=== PATIENT | female | born 1995 | race African-American/Black ===

== ENCOUNTER 2019-02-28 13:39 | Emergency (ER) | payer MEDICAID ==
--- NOTE | 2019-02-28 15:35 | ER Document Report ---
ED Medical Screen (RME) - General Chief Complaint: Abdominal Pain Stated Complaint: LOWER ABDOMINAL PAIN Time Seen by Provider: 02/28/19 15:30 Primary Care Provider: MARIAELENA MAST NP [Primary Care Provider] - Follow up as needed TRAVEL OUTSIDE OF THE [place] IN LAST 30 DAYS: No - HPI Notes: 02/28/19 15:33 Patient is a 23-year-old female with a history of ovarian cyst who presents complaining of acute on chronic pelvic pain. Patient states that she will have this type of pelvic pain every couple weeks or during her menstrual cycle. Patient states that this pain is to her right lower pelvic and does not radiate. Her last menstrual period was 2 weeks ago. No other vaginal discharge, odor, or bleeding. No abdominal surgeries in the past. She is able to eat and drink without difficulty. She is urinating normally and having normal bowel movements. No fever. I have treated and performed a rapid initial assessment of this patient. A comprehensive ED assessment and evaluation of the patient, analysis of test results and completion of medical decision making process will be conducted by additional ED providers. PHYSICAL EXAMINATION: GENERAL: Well-appearing, well-nourished and in no acute distress. A&Ox4. Answers questions appropriately. Abdomen: Limited exam in triage, but abdomen is soft. She does have some tenderness to the right lower pelvic area. - Related Data Allergies/Adverse Reactions: grape [Grape] Allergy (Verified 06/04/11 22:00) pineapple [Pineapple] Allergy (Verified 06/04/11 22:00) Home Medications: concerta 54mg Past Medical History - Social History Frequency of alcohol use: None Drug Abuse: None - Immunizations Immunizations up to date: No Hx Diphtheria, Pertussis, Tetanus Vaccination: Yes Doctor's Discharge - Discharge Referrals: MARIAELENA MAST NP [Primary Care Provider] - Follow up as needed
[2019-02-28 16:19] LABS: ABSOLUTE BASOPHILS # (AUTO) 0.1 10^3/uL (0.0-0.2); ABSOLUTE EOSINOPHILS # (AUTO) 0.1 10^3/uL (0.0-0.6); ABSOLUTE LYMPHOCYTES (AUTO) 2.5 10^3/uL (0.5-4.7); ABSOLUTE MONOCYTES (AUTO) 0.8 10^3/uL (0.1-1.4); ABSOLUTE NEUT (AUTO) 9.6 10^3/uL (1.7-8.2); BASOPHILS % (AUTO) 0.7 % (0-2); EOSINOPHILS % (AUTO) 0.8 % (0-6); HEMATOCRIT 39.6 % (36.0-47.0); HEMOGLOBIN 13.1 g/dL (12.0-15.5); LYMPHOCYTES % (AUTO) 18.9 % (13-45); MEAN CORPUSCULAR HEMOGLOBIN 28.3 pg (27.0-33.4); MEAN CORPUSCULAR HGB CONC 33.1 g/dL (32.0-36.0); MEAN CORPUSCULAR VOLUME 85 fl (80-97); MONOCYTES % (AUTO) 5.9 % (3-13); PLATELET COUNT 274 10^3/uL (150-450); RED BLOOD COUNT 4.65 10^6/uL (3.72-5.28); RED CELL DISTRIBUTION WIDTH 13.9 % (11.5-14.0); SEGMENTED NEUTROPHILS % (AUTO) 73.7 % (42-78); TOTAL CELLS COUNTED % (AUTO) 100 %
[2019-02-28 16:23] LABS: APPEARANCE,URINE CLEAR; BILIRUBIN,URINE NEGATIVE (NEGATIVE); COLOR,URINE YELLOW; GLUCOSE, URINE NEGATIVE (NEGATIVE); KETONES,URINE NEGATIVE (NEGATIVE); PROTEIN,URINE NEGATIVE (NEGATIVE); URINE SPECIFIC GRAVITY 1.014; UROBILINOGEN,URINE NEGATIVE mg/dL (<2.0)
[2019-02-28 16:36] LABS: ALBUMIN 4.2 g/dL (3.5-5.0); ALKALINE PHOSPHATASE 112 U/L (38-126); ANION GAP 10 (5-19); ASPARTATE AMINO TRANSFERASE 22 U/L (14-36); BILIRUBIN,DIRECT 0.1 mg/dL (0.0-0.4); BILIRUBIN,TOTAL 0.6 mg/dL (0.2-1.3); BLOOD UREA NITROGEN 7 mg/dL (7-20); CALCIUM 9.6 mg/dL (8.4-10.2); CARBON DIOXIDE 26 mmol/L (22-30); CHLORIDE 102 mmol/L (98-107); GLUCOSE 87 mg/dL (75-110); POTASSIUM 4.1 mmol/L (3.6-5.0); TOTAL PROTEIN 7.7 g/dL (6.3-8.2)
--- NOTE | 2019-02-28 17:32 | ER Document Report ---
ED GI/ - General Chief Complaint: Abdominal Pain Stated Complaint: LOWER ABDOMINAL PAIN Time Seen by Provider: 02/28/19 15:30 Primary Care Provider: [facility] [Provider Group] - Follow up as needed MARIAELENA MAST NP [Primary Care Provider] - Follow up as needed Notes: Patient is a 23-year-old female who presents to the emergency department with a chief complaint of pelvic pain. Patient reports this morning after urinating and while on the toilet she felt like something "dropped" in her pelvis. Patient reports she had to get assistance to help her off of the toilet due to the pelvic pain. Patient reports the pelvic pain is worse on the right side. Patient states it does not radiate. Patient denies vaginal bleeding or discharge. Patient denies history of abdominal surgeries. Patient reports normal bowel movements and denies urinary symptoms. Patient reports she is on oral control pills and her last menstrual cycle was the second week of February. Patient reports that the pain is worse with coughing and movement. Patient reports that the pain is relieved when she lays on her back. Patient denies fever. Patient reports she does have a history of ovarian cysts but that this pain appears worse. TRAVEL OUTSIDE OF THE [place] IN LAST 30 DAYS: No - Related Data Allergies/Adverse Reactions: grape [Grape] Allergy (Verified 06/04/11 22:00) pineapple [Pineapple] Allergy (Verified 06/04/11 22:00) Home Medications: concerta 54mg Past Medical History - General Information source: Patient - Social History Smoking Status: Never Smoker Frequency of alcohol use: None Drug Abuse: None Lives with: Family Family History: Reviewed & Not Pertinent Patient has suicidal ideation: No Patient has homicidal ideation: No - Past Medical History Cardiac Medical History: Reports: None Pulmonary Medical History: Reports: None EENT Medical History: Reports: None Neurological Medical History: Reports: None Endocrine Medical History: Reports: None Renal/ Medical History: Reports: Hx Ovarian Cysts Malignancy Medical History: Reports: None GI Medical History: Reports: None Musculoskeletal Medical History: Reports None Skin Medical History: Reports None Psychiatric Medical History: Reports: None Traumatic Medical History: Reports: None Infectious Medical History: Reports: None Past Surgical History: Reports: None - Immunizations Immunizations up to date: No Hx Diphtheria, Pertussis, Tetanus Vaccination: Yes Hx Pneumococcal Vaccination: 03/05/00 Review of Systems - Review of Systems Constitutional: No symptoms reported EENT: No symptoms reported Cardiovascular: No symptoms reported Respiratory: No symptoms reported Gastrointestinal: See HPI Genitourinary: No symptoms reported Female Genitourinary: See HPI Musculoskeletal: No symptoms reported Skin: No symptoms reported Hematologic/Lymphatic: No symptoms reported Neurological/Psychological: No symptoms reported Physical Exam - Vital signs Vitals: Temp Pulse Resp BP Pulse Ox 98.1 F 87 16 111/70 99 02/28/19 15:20 02/28/19 15:20 02/28/19 15:20 02/28/19 15:20 02/28/19 15:20 - Notes Notes: GENERAL: Well-appearing, well-nourished and in no acute distress. HEAD: Atraumatic, normocephalic. EYES: Pupils equal round and reactive to light, extraocular movements intact, s clera anicteric, conjunctiva are normal. ENT: Nares patent, oropharynx clear without exudates. Moist mucous membranes. NECK: Normal range of motion, supple without lymphadenopathy or JVD. LUNGS: Breath sounds clear to auscultation bilaterally and equal. No wheezes rales or rhonchi. HEART: Regular rate and rhythm without murmurs, rubs or gallops. ABDOMEN: Soft, generalized lower abdominal tenderness with rebound to llq and rlq, normoactive bowel sounds. No guarding. No masses appreciated. BACK: No cervical, thoracic, lumbar midline tenderness. No saddle anesthesia, normal distal neurovascular exam. GENITOURINARY: Deferred. EXTREMITIES: Normal range of motion, no pitting or edema. No clubbing or cyanosis. NEUROLOGICAL: Cranial nerves II through XII grossly intact. Normal speech, normal gait. PSYCH: Normal mood, normal affect. SKIN: Warm, Dry, normal turgor, no rashes or lesions noted. Course - Re-evaluation Re-evalutation: 02/28/19 17:31 Patient in ultrasound. 02/28/19 19:12 Patient's ultrasound was unable to visualize the ovaries due to bowel gas pattern. Upon reevaluation patient is resting comfortably on stretcher. I did place the patient in a supine position for an abdominal examination and reevaluation. Patient remains significantly tender with rebound tenderness in the right lower quadrant as well as the left lower quadrant. Patient continues to state that this does not feel like her normal type of ovarian cyst pain. Patient reports she has tolerated a CT in the past without difficulty. I did inform the patient that I would like to obtain a CT to rule out possible appendicitis and intra-abdominal abnormality. Patient verbalized understanding. Patient reports that she is not sexually active and has not had sexual intercourse in 2 years. Patient reports her concern for sexually transmitted disease is extremely low due to this. Patient denies vaginal bleeding or discharge. 02/28/19 21:[address] Abreu with [facility] to discuss the results of the CT and ultrasound, mild leukocytosis of 13. She does recommend the patient have any repeat ultrasound and to call the office at [facility] on Sunday. Patient reports she does have health insurance and will call them on Sunday. Patient given strict return precautions. We will give the patient anti-inflammatory medication to go home with. Patient continue her oral control. Patient has been afebrile, normotensive and not tachycardic since being here in the emergency department. Patient is resting comfortably on stretcher no acute distress. - Vital Signs Vital signs: Temp Pulse Resp BP Pulse Ox 98.9 F 85 16 134/75 H 100 02/28/19 19:18 02/28/19 19:18 02/28/19 19:18 02/28/19 19:18 02/28/19 19:18 - Laboratory Result Diagrams: 02/28/19 15:55 02/28/19 15:55 Laboratory results interpreted by me: 02/28/19 15:55 WBC 13.0 H Absolute Neuts (auto) 9.6 H 02/28/19 21:55 Patient does have a small leg cytosis of 13. There is no significant anemia, alteration electrolytes or kidney function. Patient hCG is negative and urinalysis unremarkable. Laboratory 02/28/19 02/28/19 02/28/19 15:55 15:55 15:55 WBC 13.0 H RBC 4.65 Hgb 13.1 Hct 39.6 MCV 85 MCH 28.3 MCHC 33.1 RDW 13.9 Plt Count 274 Lymph % (Auto) 18.9 Davidson % (Auto) 5.9 Eos % (Auto) 0.8 Baso % (Auto) 0.7 Absolute Neuts (auto) 9.6 H Absolute Lymphs (auto) 2.5 Absolute Monos (auto) 0.8 Absolute Eos (auto) 0.1 Absolute Basos (auto) 0.1 Seg Neutrophils % 73.7 Sodium 137.5 Potassium 4.1 Chloride 102 Carbon Dioxide 26 Anion Gap 10 BUN 7 Creatinine 0.74 Est GFR ( Amer) > 60 Est GFR (MDRD) Non-Af > 60 Glucose 87 Calcium 9.6 Total Bilirubin 0.6 Direct Bilirubin 0.1 Neonat Total Bilirubin Not Reportable Neonat Direct Bilirubin Not Reportable Neonat Indirect Bili Not Reportable AST 22 ALT 18 Alkaline Phosphatase 112 Total Protein 7.7 Albumin 4.2 Urine Color YELLOW Urine Appearance CLEAR Urine pH 6.0 Ur Specific Stockett 1.014 Urine Protein NEGATIVE Urine Glucose (UA) NEGATIVE Urine Ketones NEGATIVE Urine Blood NEGATIVE Urine Nitrite (Reflex) NEGATIVE Urine Bilirubin NEGATIVE Urine Urobilinogen NEGATIVE Leukocyte Esterase Rfl NEGATIVE Urine RBC (Auto) 0 Urine Bacteria (Auto) 2+ Urine WBC (Reflex) 1 Squamous Epi Cells Auto <1 Urine Mucus (Auto) RARE Urine Ascorbic Acid NEGATIVE Urine HCG, Qual NEGATIVE - Diagnostic Test Radiology reviewed: Reports reviewed Radiology results interpreted by me: 02/28/19 19:12 Transvaginal US 02/28/19 15:33 IMPRESSION: Examination limited by a nonvisualization of the ovaries due to obscuration by intervening bowel gas. Normal sonographic appearance of the uterus. No free fluid or adnexal masses demonstrated. 02/28/19 21:23 Transvaginal US 02/28/19 15:33 IMPRESSION: Examination limited by a nonvisualization of the ovaries due to obscuration by intervening bowel gas. Normal sonographic appearance of the uterus. No free fluid or adnexal masses demonstrated. Abdomen/Pelvis CT 02/28/19 19:11 IMPRESSION: No evidence of acute process in the right lower quadrant Complex area in the left ovary measuring 3.8 cm for which further evaluation with ultrasound is recommended Discharge - Discharge Clinical Impression: Pelvic pain Ovarian cyst Qualifiers: Laterality: left Qualified Code(s): N83.202 - Unspecified ovarian cyst, left side Condition: Stable Disposition: HOME, SELF-CARE Additional Instructions: *Today you are seen in the emergency department for pelvic pain. We did obtain a CT of the abdomen as well as an ultrasound which did show 2 simple ovarian cyst on the left and then a larger 3.8 cm complex cyst on the left. I did speak with our on-call [facility] who does recommend a repeat ultrasound sometime next week. She does want you to call [facility] on Sunday to schedule this appointment. Over the weekend please take the Toradol as prescribed, continue taking your oral control as this can help with your symptoms. Please return to the emergency department if you have any pain that increases significantly, if you become faint or if you experience vaginal bleeding or any new or worsening symptoms. Ovarian Cyst Your examination shows the presence of an ovarian cyst. This is a ball of fluid attached to the ovary. Ovarian cysts in women of child-bearing age are usually innocent. However, the cyst may cause pain when it grows or bursts. An innocent ovarian cyst will usually go away by itself. When the cyst becomes painful, you should rest. Pain medication may be required. Some women find a hot water bottle soothing. The pain usually reso lves within one or two days. After menopause, an ovarian cyst may mean a tumor, and requires more aggressive evaluation -- usually surgery is recommended to remove or biopsy the cyst. A very large cyst requires evaluation at any age. Most cysts (even the innocent ones) require follow-up examination. Call the doctor or return at any time if the pain increases significantly, if you become faint, or if you experience vaginal bleeding. Prescriptions: Ketorolac Tromethamine [Toradol 10 mg Tablet] 10 mg PO Q8HP PRN #21 tablet PRN Reason: Forms: Return to Work Referrals: MARIAELENA MAST NP [Primary Care Provider] - Follow up as needed [facility] [Provider Group] - Follow up as needed
--- NOTE | 2019-02-28 18:55 | RADIOLOGY REPORT (SQ) ---
EXAM DESCRIPTION: U/S NON OB PEL TV W/DOPPLER COMPLETED DATE/TIME: 02/28/2019 6:24 pm REASON FOR STUDY: Rt pelvic pain COMPARISON: 01/24/2012 TECHNIQUE: Dynamic and static grayscale images acquired of the pelvis via transvaginal approach and recorded on PACS. Additional selected color Doppler and spectral images recorded. LIMITATIONS: None. FINDINGS: UTERUS: Contour normal. No mass. ENDOMETRIAL STRIPE: No focal or generalized thickening. No masses. CERVIX: Incidental note is made of tiny nabothian cysts. RIGHT OVARY AND DOPPLER: Ovary not visualized. LEFT OVARY AND DOPPLER: Ovary not visualized. FREE FLUID: None noted. OTHER: No other significant finding. MEASUREMENTS: UTERUS: 7.7 x 4.5 x 4.6 cm ENDOMETRIAL STRIPE: 15 mm RIGHT OVARY: Not visualized. LEFT OVARY: Not visualized. IMPRESSION: Examination limited by a nonvisualization of the ovaries due to obscuration by interveni ng bowel gas. Normal sonographic appearance of the uterus. No free fluid or adnexal masses demonstr ated. TECHNICAL DOCUMENTATION: JOB ID: [id number]- All Rights Reserved Rev-07/20 Reading location - IP/workstation name: [email or web address]
--- NOTE | 2019-02-28 21:09 | RADIOLOGY REPORT (SQ) ---
EXAM DESCRIPTION: CT ABDOMEN PELVIS WITH IV CONTRAST COMPLETED DATE/TME: 02/28/2019 19:11 CLINICAL HISTORY: 23 years Female lower abdominal pain, rebound tenderness rlq COMPARISON: 06/21/2014 TECHNIQUE: Contiguous axial images obtained through the abdomen and pelvis following IV contrast. Reformatted images obtained. This exam was performed according to our department optimization program which includes automated exposure control, adjustment of the mA and/or kv according to patient size and/or use of iterative reconstruction technique. FINDINGS: The liver appears unremarkable. The spleen and pancreas appear unremarkable. No adrenal masses. The kidneys appear unremarkable. No hydronephrosis. The gallbladder is visualized. No aneurysmal dilatation of the aorta. No bowel obstruction. The appendix is unremarkable. There is a collapsed ovarian cyst on the left measuring 1.8 cm for which no follow-up is recommended. Additional simple appearing left ovarian cyst on the left measures 2.3 cm which is almost certainly benign and no follow-up is recommended. Third area measures 3.8 cm and is complex. Recommend further evaluation with ultrasound. IMPRESSION: No evidence of acute process in the right lower quadrant Complex area in the left ovary measuring 3.8 cm for which further evaluation with ultrasound is recommended
[2019-02-28 22:15] VITALS: BP 117/74
== END 2019-02-28 22:15 | disposition home or self-care (01) ==
LOC: ER 13:39
DX: N83.202 Unspecified ovarian cyst, left side (principal); R10.2 Pelvic and perineal pain; R10.813 Right lower quadrant abdominal tenderness; R10.814 Left lower quadrant abdominal tenderness; D72.829 Elevated white blood cell count, unspecified; Z79.3 Long term (current) use of hormonal contraceptives; Z79.899 Other long term (current) drug therapy; Z87.42 Personal history of other diseases of the female genital tract; Z91.018 Allergy to other foods
CPT/HCPCS: 36415; 74177; 76830; 80053; 81001; 81025; 85025; 93976; 99284